=== PATIENT | female | born 1945 | race Two or more races ===

== ENCOUNTER 2020-03-17 12:18 | Inpatient (IN) | payer MEDICARE, MEDICAID ==
[~2020-03-17] VITALS: Ht 154.9 cm; Wt 84.1 kg
[2020-03-17] MEDS ORDERED: SODIUM CHLORIDE 0.9% 1,000 ML IV ONE (13:00)
[2020-03-17 13:57] LABS: BASOPHILS % 0.8 % (0.0-2.0); EOSINOPHILS % 1.2 % (0.0-5.0); HEMATOCRIT. 27.2 % (36.0-48.0); LYMPHOCYTES % 19.8 % (20.0-50.0); MEAN CORPUSCULAR HEMOGLOBIN 29.7 pg (28.0-32.0); MEAN CORPUSCULAR VOLUME 90.1 fL (81.0-99.0); MEAN PLATELET VOLUME 8.6 fl (7.4-10.4); MONOCYTES % 5.1 % (2.0-8.0); NEUTROPHILS % 73.1 % (40.0-76.0); PLATELET 213 x1000/uL (130-400); RED BLOOD CELL COUNT 3.01 mill/uL (4.2-5.4); RED CELL DISTRIBUTION WIDTH 15.4 % (11.6-14.6)
[2020-03-17 14:02] LABS: CHLORIDE 115 mEq/L (98-107)
[2020-03-17 14:13] LABS: INR 1.3; PROTHROMBIN TIME 13.2 sec (9.6-11.0)
[2020-03-17] MEDS ORDERED: IOHEXOL-350 100 ML BOTTLE ONE (14:24)
[2020-03-17 15:46] LABS: CLARITY URINE CLEAR (CLEAR); COLOR URINE YELLOW (YELLOW); KETONES URINE NEGATIVE (NEGATIVE); LEUKOCYTE ESTERASE URINE 2+ (NEGATIVE); NITRITE URINE NEGATIVE (NEGATIVE); OCCULT BLOOD URINE NEGATIVE (NEGATIVE); PH URINE 5.5 (4.5-8.0); PROTEIN URINE NEGATIVE (NEGATIVE); SPECIFIC GRAVITY URINE 1.051 (1.005-1.030); UROBILINOGEN URINE 0.2 E.U./dL (0.2-1.0)
[2020-03-17] MEDS ORDERED: CEFTRIAXONE 1 G PREMIX 50 ML IV ONE (18:15)
[2020-03-17] MEDS ORDERED: ONDANSETRON HCL 4MG/2ML INJ IV PRN (20:45)
[2020-03-17] MEDS ORDERED: ACETAMINOPHEN 325MG TABLET PO PRN ×2 (20:45)
[2020-03-17] MEDS ORDERED: IBUPROFEN 600MG TABLET PO PRN (20:45)
[2020-03-17] MEDS ORDERED: DIPHENHYDRAMINE 50MG/ML VIAL IV PRN (20:45)
[2020-03-17] MEDS ORDERED: CLONIDINE 0.1MG TABLET PO PRN (20:45)
[2020-03-17] MEDS ORDERED: GUAIFENESIN 200MG/10ML SUGAR FREE UDC PO PRN (20:45)
[2020-03-17] MEDS ORDERED: MAGNESIUM/ALUMINUM HYDROXIDE/SIMETHICONE 30ML UDC PO PRN (20:45)
[2020-03-17 22:00] VITALS: BP 110/38
[2020-03-17] MEDS ORDERED: MVI, ADULT NO.1 10 ML, FOLIC ACID 1 MG, THIAMINE HCL 100 MG in SODIUM CHLORIDE 0.9% 1,0... IV NR ×4 (22:00)
[2020-03-17] MEDS: SODIUM CHLORIDE 0.9% INJ 3ML FLUSH IVF SCH (22:55)
[2020-03-17] MEDS: FAMOTIDINE 20MG TABLET PO SCH (22:56)
[2020-03-17 23:32] VITALS: BP 110/46
[2020-03-17 23:54] VITALS: BP 119/55
[2020-03-18] VITALS (17 sets, daily range): BP systolic 111–154; BP diastolic 45–80
[2020-03-18] MEDS ORDERED: HYDR25TA PO (05:33)
[2020-03-18] MEDS ORDERED: LEVO125T8 PO (05:35)
[2020-03-18] MEDS ORDERED: CLOP75TA33 PO (05:35)
[2020-03-18] MEDS ORDERED: ATOR20TA65 PO (05:35)
[2020-03-18] MEDS ORDERED: ASPI-1497 PO (05:35)
[2020-03-18] MEDS: LEVOTHYROXINE SODIUM 125MCG TABLET PO SCH (06:00)
[2020-03-18] MEDS: SODIUM CHLORIDE 0.9% INJ 3ML FLUSH IVF SCH ×3 (06:00→21:02)
[2020-03-18 07:04] LABS: BASOPHILS % 0.6 % (0.0-2.0); EOSINOPHILS % 1.8 % (0.0-5.0); HEMATOCRIT. 22.8 % (36.0-48.0); HEMOGLOBIN. 7.5 g/dL (12.0-16.0); LYMPHOCYTES % 18.7 % (20.0-50.0); MEAN CORPUSCULAR HEMOGLOBIN 29.7 pg (28.0-32.0); MEAN CORPUSCULAR VOLUME 90.3 fL (81.0-99.0); MEAN PLATELET VOLUME 8.8 fl (7.4-10.4); MONOCYTES % 8.7 % (2.0-8.0); NEUTROPHILS % 70.2 % (40.0-76.0); PLATELET 184 x1000/uL (130-400); RED BLOOD CELL COUNT 2.52 mill/uL (4.2-5.4); RED CELL DISTRIBUTION WIDTH 15.5 % (11.6-14.6)
[2020-03-18 07:14] LABS: CHLORIDE 114 mEq/L (98-107)
[2020-03-18] MEDS: LOSARTAN POTASSIUM 25 MG TABLET PO SCH (09:19)
[2020-03-18] MEDS: FAMOTIDINE 20MG TABLET PO SCH ×2 (09:19→21:02)
[2020-03-18] MEDS: PREDNISONE 10MG TABLET PO SCH (09:19)
[2020-03-18] MEDS ORDERED: THROMBIN (BOVINE) 5000 UNITS/VIAL TOP NR (12:15)
[2020-03-18] MEDS ORDERED: SODIUM BICARBONATE 4% (2.4MEQ) 5ML VIAL IV ONE (12:57)
[2020-03-18] MEDS ORDERED: LIDOCAINE HCL 1% 20ML VIAL (Pyxis) INJ ONE (12:57)
[2020-03-18 13:23] LABS: INR 1.2; PROTHROMBIN TIME 12.6 sec (9.6-11.0)
[2020-03-18 15:59] LABS: HEMATOCRIT 26.5 % (36.0-48.0); HEMOGLOBIN 8.8 g/dL (12.0-16.0); MEAN CORPUSCULAR HEMOGLOBIN 30.5 pg (28.0-32.0); MEAN CORPUSCULAR VOLUME 91.4 fL (81.0-99.0); RED CELL DISTRIBUTION WIDTH 15.5 % (11.6-14.6)
[2020-03-18 16:45] LABS: PLATELET 173 x1000/uL (130-400)
[2020-03-19] VITALS (27 sets, daily range): BP systolic 108–179; BP diastolic 32–88
[2020-03-19] MEDS ORDERED: MORPHINE SULFATE 2 MG/ML CPJ (NOT FOR IM USE) IV PRN (03:15)
[2020-03-19] MEDS: LEVOTHYROXINE SODIUM 125MCG TABLET PO SCH (05:56)
[2020-03-19] MEDS: SODIUM CHLORIDE 0.9% INJ 3ML FLUSH IVF SCH ×3 (05:57→21:34)
[2020-03-19 06:38] LABS: HEMATOCRIT 23.9 % (36.0-48.0); HEMOGLOBIN 8.2 g/dL (12.0-16.0); MEAN CORPUSCULAR HEMOGLOBIN 30.6 pg (28.0-32.0); MEAN CORPUSCULAR VOLUME 89.3 fL (81.0-99.0); PLATELET 169 x1000/uL (130-400); RED BLOOD CELL COUNT 2.68 mill/uL (4.2-5.4); RED CELL DISTRIBUTION WIDTH 15.6 % (11.6-14.6)
[2020-03-19] MEDS: FAMOTIDINE 20MG TABLET PO SCH ×2 (09:00→21:33)
[2020-03-19] MEDS: LOSARTAN POTASSIUM 25 MG TABLET PO SCH ×2 (09:00→13:21)
[2020-03-19] MEDS: PREDNISONE 10MG TABLET PO SCH ×2 (09:00→13:21)
[2020-03-19] MEDS ORDERED: IOHEXOL-300 100 ML BOTTLE ONE (11:23)
[2020-03-19] MEDS ORDERED: LIDOCAINE HCL 1% 20ML VIAL (Pyxis) INJ ONE (11:23)
[2020-03-19] MEDS ORDERED: SODIUM BICARBONATE 4% (2.4MEQ) 5ML VIAL IV ONE (11:23)
[2020-03-19] MEDS ORDERED: FENTANYL CITRATE/PF 50MCG/ML 2ML VIAL ONE (11:51)
[2020-03-19] MEDS ORDERED: FENTANYL CITRATE/PF 50MCG/ML 2ML VIAL IV NR (11:51)
[2020-03-20] VITALS (9 sets, daily range): BP systolic 127–158; BP diastolic 52–71
[2020-03-20] MEDS: LEVOTHYROXINE SODIUM 125MCG TABLET PO SCH (05:46)
[2020-03-20] MEDS: SODIUM CHLORIDE 0.9% INJ 3ML FLUSH IVF SCH ×2 (05:47→14:05)
[2020-03-20 07:00] LABS: HEMATOCRIT 25.7 % (36.0-48.0); HEMOGLOBIN 8.7 g/dL (12.0-16.0); MEAN CORPUSCULAR HEMOGLOBIN 30.3 pg (28.0-32.0); MEAN CORPUSCULAR VOLUME 89.2 fL (81.0-99.0); PLATELET 203 x1000/uL (130-400); RED BLOOD CELL COUNT 2.88 mill/uL (4.2-5.4); RED CELL DISTRIBUTION WIDTH 15.3 % (11.6-14.6)
[2020-03-20] MEDS: PREDNISONE 10MG TABLET PO SCH (08:51)
[2020-03-20] MEDS: FAMOTIDINE 20MG TABLET PO SCH (08:51)
[2020-03-20] MEDS ORDERED: LOSARTAN POTASSIUM 100 MG TABLET PO SCH (09:00)
== END 2020-03-20 16:54 | disposition home or self-care (01) | DRG 252 ==
LOC: ER 12:18 → 3WST 15:32 → EDBEDREQ 15:36 → EDBEDREQTM 15:36 → ENRESERV 19:12
PROVIDERS: ADMIT Internal Medicine; ATTEND Internal Medicine
PROC: 30233N1 Transfusion of Nonautologous Red Blood Cells into Peripheral Vein, Percutaneous Approach (ICD-10-PCS; principal; 2020-03-17)
PROC: 3E053GC Introduction of Other Therapeutic Substance into Peripheral Artery, Percutaneous Approach (ICD-10-PCS; 2020-03-17)
PROC: B31H1ZZ Fluoroscopy of Right Upper Extremity Arteries using Low Osmolar Contrast (ICD-10-PCS; 2020-03-17)
PROC: 03LY3DZ Occlusion of Upper Artery with Intraluminal Device, Percutaneous Approach (ICD-10-PCS; 2020-03-19)
DX: I72.9 Aneurysm of unspecified site (principal); K66.1 Hemoperitoneum; D62 Acute posthemorrhagic anemia; E44.0 Moderate protein-calorie malnutrition; I73.9 Peripheral vascular disease, unspecified; I12.9 Hypertensive chronic kidney disease with stage 1 through stage 4 chronic kidney disease, or unspecified chronic kidney disease; M19.90 Unspecified osteoarthritis, unspecified site; N18.9 Chronic kidney disease, unspecified; E03.9 Hypothyroidism, unspecified; Z20.828 Contact with and (suspected) exposure to other viral communicable diseases; E66.9 Obesity, unspecified; Z95.5 Presence of coronary angioplasty implant and graft; Z79.899 Other long term (current) drug therapy; Z68.35 Body mass index [BMI] 35.0-35.9, adult; R00.1 Bradycardia, unspecified
CPT/HCPCS: 36415; 71045; 74174; 74176; 75774; 75898; 76857; 76937; 76942; 80048; 80053; 81003; 83605; 83880; 84484; 85025; 85027; 86850; 86900; 86920; 87426; 93005; 96365; 99152; 99153; 99291; C1725; C1757; J0696; J1644; J3010; J3411; J3490; J7030; J7040; J7512; P9016; Q9967; A4315; G0500